=== PATIENT | female | born 1970 | race Caucasian/White ===

== ENCOUNTER 2022-07-30 17:03 | Emergency (ER) | payer SELFPAY ==
[2022-07-30] VITALS (12 sets, daily range): BP systolic 168–215; BP diastolic 88–125
[~2022-07-30] VITALS: Ht 165.1 cm; Wt 80.7 kg
[~2022-07-30 17:03] MED LIST: BACTRIM DS1 TAB PO; DOXYCYCL HYC100 MG PO; METRONIDAZOL500 MG PO; NITROFURANTN100 MG PO; ULTRAM50 M1 PO; ZOFRAN ODT4 MG PO; ZYRTEC10 MG PO
[2022-07-30 19:27] LABS: BASO% 0.5 % (0-3); EOS% 2.1 % (0-8); HEMATOCRIT 42.6 % (37.0-47.0); HEMOGLOBIN 13.9 g/dl (12.0-16.0); IMMATURE GRANULOCYTES 0.1 % (0.0-5.0); LYMPH% 30.4 % (15-41); MEAN CELL VOLUME 97.3 fL CALC (80.0-100.0); MEAN CORPUSCULAR HGB 31.7 pG CALC (26.0-32.0); MEAN CORPUSCULAR HGB CONC 32.6 g/dL CAL (32.0-36.0); MONO% 4.3 % (2-13); NEUT# 4.76 thou/uL (2.00-7.15); NEUT% 62.6 % (42-76); RED BLOOD COUNT 4.38 mill/uL (4.20-5.60); RED CELL DISTRI WIDTH 12.9 % (11.5-15.5)
[2022-07-30 19:37] LABS: ALBUMIN 4.1 g/dL (3.2-5.0); ALKALINE PHOSPHATASE 109 u/l (38-126); ANION GAP 8 (6-22 (CALC)); BUN 17 mg/dL (7-17); BUN/CREATININE RATIO 22 (12-20 (CALC)); CARBON DIOXIDE 28 mmol/l (22-30); CHLORIDE 106 mmol/l (95-108); CREATININE 0.8 mg/dL (0.5-1.0); GFR FOR AFR.AMER. > 60 ML/MIN (>=60 (CALC)); GFR OTHER RACES > 60 ML/MIN (>=60 (CALC)); SGOT/AST 23 u/l (14-36); SODIUM 138 mmol/l (137-146); TOTAL PROTEIN 6.5 g/dL (6.3-8.2)
[2022-07-30 19:38] LABS: BILIRUBIN, TOTAL 0.2 mg/dL (0.02-1.3)
[2022-07-30 19:54] LABS: URINE BILIRUBIN - DIPSTICK NEGATIVE (NEGATIVE); URINE BLOOD DIPSTICK NEGATIVE (NEGATIVE); URINE COLOR YELLOW; URINE GLUCOSE - DIPSTICK NEGATIVE (NEGATIVE); URINE KETONE NEGATIVE (NEGATIVE); URINE LEUK ESTERASE NEGATIVE (NEGATIVE); URINE PROTEIN - DIPSTICK NEGATIVE (NEG-TRACE); URINE SPECIFIC GRAVITY 1.015; URINE UROBILINOGEN - DIPSTICK 0.2 E.U./dL (0.2)
[2022-07-30 19:57] LABS: URINE NITRITE - DIPSTICK NEGATIVE (Negative)
[2022-07-30] MEDS ORDERED: COZAAR50 MG PO (20:20)
[2022-07-30] MEDS ORDERED: TRAMADOL HYDROC50 M1 PO (20:20)
== END 2022-07-30 20:36 | disposition home or self-care (01) | DRG 563 ==
LOC: ED 17:03
PROVIDERS: Nurse Practitioner
DX: S42.032A Displaced fracture of lateral end of left clavicle, initial encounter for closed fracture (principal); I10 Essential (primary) hypertension; F17.200 Nicotine dependence, unspecified, uncomplicated; W01.0XXA Fall on same level from slipping, tripping and stumbling without subsequent striking against object, initial encounter